=== PATIENT | female | born 1970 ===

== ENCOUNTER → 2021-08-09 | Outpatient (CLI) | payer SELFPAY | END | disposition home or self-care (01) | LOC: LAB SHORT 14:43 | DX: D22.39 Melanocytic nevi of other parts of face (principal); L28.0 Lichen simplex chronicus; L81.4 Other melanin hyperpigmentation; L57.8 Other skin changes due to chronic exposure to nonionizing radiation; Z71.89 Other specified counseling | CPT/HCPCS: 87070; 87205 ==